=== PATIENT | female | born 1975 | race American Indian/Alaskan Native ===

== ENCOUNTER 2017-12-28 13:43 | Inpatient (IN) | payer MEDICAID, OTHER ==
[2017-12-28 14:33] LABS: MEAN CELL VOLUME 55.2 fL (81.0-99.0); MEAN CORPUSCULAR HEMOGLOBIN 15.4 pg (27.0-31.0); MEAN CORPUSCULAR HGB CONC 27.9 g/dL (33.0-37.0); MEAN PLATELET VOLUME 8.7 fL (7.2-11.7); RBC 4.19 Mil/uL (3.80-5.20); RED CELL DISTRIBUTION WIDTH 22.6 % (11.5-14.5)
[2017-12-28 14:37] LABS: HEMOGLOBIN 6.5 g/dL (11.0-16.0)
[2017-12-28 14:50] LABS: ALB/GLOB RATIO 1.2 (1.0-2.1); ALBUMIN 3.8 g/dL (3.5-5.0); ALT/SGPT 19 U/L (9-52); AST/SGOT 26 U/L (14-36); BLOOD UREA NITROGEN 11 mg/dL (7-17); CALCIUM 8.7 mg/dl (8.6-10.4); GFR NON-AFRICAN AMERICAN > 60
[2017-12-28 14:54] LABS: WHITE BLOOD COUNT 4.1 K/uL (4.8-10.8)
--- NOTE | 2017-12-28 15:57 | C.PDOC ---
History Of Present Illness 42 y/o F c PMHx anemia 1 year ago p/w leg numbness, headache, and weakness x weeks. States same symptoms as when she has had anemia in the past. States had a prolonged period recently. Denies bloody or black stool, chest pain, dyspnea, nausea, vomiting, LOC. Time Seen by Provider: 12/28/17 15:06 Chief Complaint (Nursing): Abnormal Labs Past Medical History Vital Signs: Last Vital Signs Temp 97.8 F 12/28/17 13:47 Pulse 86 12/28/17 13:47 Resp 18 12/28/17 13:47 BP 116/77 12/28/17 13:47 Pulse Ox 100 12/28/17 13:47 - Medical History PMH: Anemia - [facility] Procedures BILAT TUBAL DESTRUCT NEC (11/16/03) LOW CERVICAL (11/16/03) Family History: States: No Known Family Hx - Social History Hx Alcohol Use: No Hx Substance Use: No - Immunization History Hx Tetanus Toxoid Vaccination: No Hx Influenza Vaccination: No Hx Pneumococcal Vaccination: No Review Of Systems Except As Marked, All Systems Reviewed And Found Negative. Constitutional: Negative for: Fever Cardiovascular: Negative for: Chest Pain Physical Exam - Physical Exam Additional Physical Exam Comments: Gen: NAD Head: NC/AT Eyes: Conjunctival pallor ENT: MMM Neck: Supple CV: Regular rate, no murmur Chest: No deformity Abd: Soft, NT Back: No CVA tenderness Skin: No rash Neuro: Alert Extremities: No edema ED Course And Treatment - Laboratory Results Result Diagrams: 12/28/17 14:23 12/28/17 14:41 O2 Sat by Pulse Oximetry: 100 Medical Decision Making Medical Decision Making: EKG NSR 64 bpm, no ST/T wave changes. Found to be anemic severely. Will require blood transfusion. Consented. Dr. Ley, medicine lactation coordinator, accepts patient to his service. Disposition Discussed With : Rodriguez Ley Doctor Will See Patient In The: Hospital - Disposition Disposition: HOSPITALIZED Disposition Time: 15:58 Condition: FAIR - Clinical Impression Clinical Impression: Symptomatic anemia
[2017-12-28] MEDS ORDERED: Ferric Sodium Gluconat Complex 62.5 mg/5 ml Vial IVPB SCH (16:15)
[2017-12-28] MEDS ORDERED: Ferric Sodium Gluconat Complex 125 MG in Sodium Chloride 0.9% 100 ML IVPB ONE (18:00)
[2017-12-28 18:39] LABS: IRON 56 ug/dL (37-170)
[2017-12-28 18:48] LABS: % IRON SATURATION 13 (20-55); TOTAL IRON BINDING CAPACITY 435 ug/dL (250-450)
[2017-12-28 19:07] VITALS: RESP 20
--- NOTE | 2017-12-28 21:49 | CP.PCM.HP ---
Past Patient History - Past Medical History & Family History Past Medical History?: Yes - Past Social History Smoking Status: Never Smoked - CARDIAC Hx Cardiac Disorders: No - PULMONARY Hx Respiratory Disorders: No - NEUROLOGICAL Hx Neurological Disorder: No - HEENT Hx HEENT Problems: No - RENAL Hx Chronic Kidney Disease: No - ENDOCRINE/METABOLIC Hx Endocrine Disorders: No - HEMATOLOGICAL/ONCOLOGICAL Hx Blood Disorders: Yes Hx Anemia: Yes - INTEGUMENTARY Hx Dermatological Problems: No - MUSCULOSKELETAL/RHEUMATOLOGICAL Hx Musculoskeletal Disorders: No Hx Falls: No - GASTROINTESTINAL Hx Gastrointestinal Disorders: No - GENITOURINARY/GYNECOLOGICAL Hx Genitourinary Disorders: No - PSYCHIATRIC Hx Psychophysiologic Disorder: No Hx Substance Use: No - SURGICAL HISTORY Hx Surgeries: Yes Hx Section: Yes - ANESTHESIA Hx Anesthesia: Yes Hx Anesthesia Reactions: No Meds Allergies/Adverse Reactions: Allergies Allergy/AdvReac Type Severity Reaction Status Date / Time No Known Allergies Allergy Verified 12/28/17 13:51 Results - Vital Signs Recent Vital Signs: Last Vital Signs Temp 97.7 F 12/28/17 18:45 Pulse 67 12/28/17 18:45 Resp 20 12/28/17 18:45 BP 122/64 12/28/17 18:45 Pulse Ox 100 12/28/17 18:45 - Labs Result Diagrams: 12/28/17 14:23 12/28/17 14:41 Labs: Laboratory Results - last 24 hr 12/28/17 12/28/17 12/28/17 14:23 14:41 14:41 WBC 4.1 L RBC 4.19 Hgb 6.5 L* Hct 23.1 L MCV 55.2 L MCH 15.4 L MCHC 27.9 L RDW 22.6 H Plt Count 355 MPV 8.7 Differential Comment Sodium 139 Potassium 3.8 Chloride 107 Carbon Dioxide 21 L Anion Gap 14 BUN 11 Creatinine 0.6 L Est GFR ( Amer) > 60 Est GFR (Non-Af Amer) > 60 Random Glucose 79 Calcium 8.7 Iron TIBC % Saturation Total Bilirubin 0.5 AST 26 ALT 19 Alkaline Phosphatase 54 Total Protein 6.9 Albumin 3.8 Globulin 3.1 Albumin/Globulin Ratio 1.2 Urine HCG, Qual Stool Occult Blood Blood Type B POSITIVE Blood Type Confirm B POSITIVE Antibody Screen Negative 12/28/17 12/28/17 12/28/17 15:57 18:23 20:45 WBC RBC Hgb Hct MCV MCH MCHC RDW Plt Count MPV Differential Comment Sodium Potassium Chloride Carbon Dioxide Anion Gap BUN Creatinine Est GFR ( Amer) Est GFR (Non-Af Amer) Random Glucose Calcium Iron 56 TIBC 435 % Saturation 13 L Total Bilirubin AST ALT Alkaline Phosphatase Total Protein Albumin Globulin Albumin/Globulin Ratio Urine HCG, Qual Negative Stool Occult Blood Negative Blood Type Blood Type Confirm Antibody Screen
[2017-12-29 07:24] LABS: HEMOGLOBIN 7.8 g/dL (11.0-16.0); MEAN CORPUSCULAR HEMOGLOBIN 17.4 pg (27.0-31.0); MEAN CORPUSCULAR HGB CONC 29.5 g/dL (33.0-37.0); RBC 4.48 Mil/uL (3.80-5.20); WHITE BLOOD COUNT 4.5 K/uL (4.8-10.8)
[2017-12-29 07:38] LABS: MEAN CELL VOLUME 59.1 fL (81.0-99.0)
--- NOTE | 2017-12-29 09:55 | HP ---
CHIEF COMPLAINT: Weakness and numbness of the leg x1 day. HISTORY OF PRESENT ILLNESS: This is a 42-year-old -[place] female with a history of menorrhagia. The patient was referred by her PMD for generalized weakness, difficulty walking, palpitation and dizziness. She denies any history of rectal bleeding. She denies any hematemesis. She denies any history of hemoptysis. According to her, she bleeds heavily with menses and she has this issue since her childhood. She has not seen any cushion maker recently and she is noncompliant with followup with her PMD. No fever. No chills. No dysuria, hematuria or pyuria. She denies any significant . SOCIAL HISTORY: Nonsmoker. Non EtOH user. CURRENT MEDICATIONS: Unsure. PAST MEDICAL HISTORY: Nothing significant. PHYSICAL EXAMINATION: GENERAL: A middle-aged female in no acute distress. Weak, pale. VITAL SIGNS: Blood pressure 116/77, pulse 56, respiratory rate 18, temperature 97.8. SKIN: Pale. Normal turgor. HEENT: Atraumatic, normocephalic. Positive pallor. Negative jaundice. Extraocular movements are intact. NECK: Supple. No JVD. No lymph node. No thyromegaly. No carotid bruits. CHEST WALL: Bilateral symmetrical expansion. LUNGS: Clear. No rales. No rhonchi. CARDIOVASCULAR SYSTEM: S1, S2 regular. ABDOMEN: Soft. PELVIC: No fresh bleeding. EXTREMITIES: No clubbing, cyanosis or edema. CENTRAL NERVOUS SYSTEM: Awake, alert and oriented x3. ASSESSMENT: 1. Anemia due to iron deficiency due to vaginal bleeding. 2. Vaginal bleeding, rule out fibroid. PLAN: Admit. Detailed orders written. Seen and examined. Rodriguez Ley MD
[2017-12-29] MEDS ORDERED: Ferric Sodium Gluconat Complex 125 MG in Sodium Chloride 0.9% 100 ML IVPB SCH (10:00)
[2017-12-29] MEDS ORDERED: Pneumococcal 23-Valent Vaccine IM ONE (14:00)
[2017-12-29] MEDS ORDERED: Influenza Vaccine 60 MCG/0.5 ML SYR (3 yr & up) IM ONE (14:00)
--- NOTE | 2017-12-29 14:27 | US ---
Pelvic ultrasound HISTORY: Fibroid lesions. COMPARISON: None available. TECHNIQUE: Real-time sonography was performed through the pelvis utilizing transabdominal and transvaginal techniques. Findings: Uterus: 12.6 x 7.1 x 8.0 centimeters. Heterogeneous echotexture. Anteverted. Heterogeneous lesions within the uterus suggestive for possible fibroid lesions: Midportion: 3.3 x 2.3 x 2.7 centimeters, 1.5 x 1.5 x 0.9 centimeters, and 1.9 x2.3 x 2.1 centimeters with some associated calcification. Anterior aspect: 7 x 5 x 7 millimeters. Posterior aspect: 4.1 x 3.1 x 4.1 centimeters. Prominent endometrium measuring 1.6 centimeters. Cervix measures 3.6 centimeters. Free fluid within the pelvic cul-de-sac. Right ovary: 4.9 x 2.9 x 4.1 centimeters. Normal flow. Complex cystic lesion in the right ovary measuring 2.4 x 1.8 x 2.0 centimeters. Free fluid adjacent to the right ovary. Left ovary: 3.2 x 1.4 x 3.4 centimeters. Normal flow. Free fluid adjacent to the left ovary. Impression: 1. Multiple lesions noted within the uterus suggestive for a multi fibroid uterus. Correlation with pelvic MRI may be helpful if clinically indicated. 2. 2.4 centimeter complex right ovarian cyst. 4-6 week interval follow-up may be helpful if clinically indicated. 3. Thickened endometrium measuring 1.6 centimeters. Clinical correlation. 4. Fluid within the pelvic cul-de-sac and adjacent to the ovaries. Free fluid within the pelvic cul-de-sac and adjacent to the bilateral ovaries. He
--- NOTE | 2017-12-29 21:44 | CP.PCM.PN ---
Subjective - Subjective Subjective: dictated Objective - Vital Signs/Intake and Output Vital Signs (last 24 hours): Temp Pulse Resp BP Pulse Ox 98.2 F 71 20 108/68 100 12/29/17 15:00 12/29/17 15:00 12/29/17 15:00 12/29/17 15:00 12/29/17 15:00 - Medications Medications: Current Medications Ferric Sodium Gluconate Complex 125 mg/ Sodium Chloride 110 mls @ 110 mls/hr IVPB DAILY JOE Stop: 01/05/18 10:01 - Labs Labs: 12/29/17 06:45 12/28/17 14:41
--- NOTE | 2017-12-30 06:15 | PN ---
DATE: 12/29/2017 SUBJECTIVE: Italo Odom has multiple uterine fibroids. Her hemoglobin is up to 7.8. She is afebrile. No shortness of breath. PHYSICAL EXAMINATION: VITAL SIGNS: Blood pressure 110/68, pulse 71, respiratory rate 20, temperature 98.2. LUNGS: Clear. CVS: S1, S2. Regular. ABDOMEN: Soft. ASSESSMENT: Uterine fibroids with vaginal bleeding. Anemia due to uterine fibroids. PLAN: Continue current medication. Monitor the patient. Rodriguez Ley MD
[2017-12-30] MEDS: Ferric Sodium Gluconat Complex 125 MG in Sodium Chloride 0.9% 100 ML IVPB SCH (10:45)
[2017-12-30 13:56] LABS: HEMOGLOBIN 8.3 g/dL (11.0-16.0); MEAN CORPUSCULAR HEMOGLOBIN 17.4 pg (27.0-31.0); MEAN CORPUSCULAR HGB CONC 29.5 g/dL (33.0-37.0); MEAN PLATELET VOLUME 8.8 fL (7.2-11.7); RBC 4.74 Mil/uL (3.80-5.20); RED CELL DISTRIBUTION WIDTH 25.7 % (11.5-14.5); WHITE BLOOD COUNT 5.1 K/uL (4.8-10.8)
[2017-12-30 14:26] LABS: ALB/GLOB RATIO 1.1 (1.0-2.1); ALBUMIN 3.5 g/dL (3.5-5.0); ALT/SGPT 18 U/L (9-52); AST/SGOT 22 U/L (14-36); BLOOD UREA NITROGEN 12 mg/dL (7-17); CALCIUM 8.9 mg/dl (8.6-10.4); GFR NON-AFRICAN AMERICAN > 60
[2017-12-30 14:53] LABS: EOS # 0.4 K/uL (0.0-0.7); LYMPH # 1.1 K/uL (1.0-4.3); MONO # 0.5 K/uL (0.0-0.8); NEUT # 3.1 K/uL (1.8-7.0)
--- NOTE | 2017-12-30 23:54 | CP.PCM.PN ---
Subjective - Subjective Subjective: dictated Objective - Vital Signs/Intake and Output Vital Signs (last 24 hours): Temp Pulse Resp BP Pulse Ox 98.6 F 60 20 102/57 L 99 12/30/17 15:00 12/30/17 15:00 12/30/17 15:00 12/30/17 15:00 12/30/17 15:00 Intake and Output: 12/30/17 12/31/17 18:59 06:59 Intake Total 930 700 Balance 930 700 - Medications Medications: Current Medications Ferric Sodium Gluconate Complex 125 mg/ Sodium Chloride 110 mls @ 110 mls/hr IVPB DAILY JOE Stop: 01/05/18 10:01 Last Admin: 12/30/17 10:45 Dose: 110 mls/hr - Labs Labs: 12/30/17 13:39 12/30/17 13:39
[2017-12-31 01:27] VITALS: O2SAT 100
--- NOTE | 2017-12-31 02:55 | PN ---
DATE: 12/31/2017 SUBJECTIVE: Italo Odom is for discharge. She is afebrile. Feels better. Less short of breath. Less weak. Less dizziness. PHYSICAL EXAMINATION VITAL SIGNS: BP 102/57, pulse 60, respiratory rate 20, temperature 98.6. LUNGS: Clear. CARDIOVASCULAR SYSTEM: S1 and S2, regular. ABDOMEN: Soft. ASSESSMENT: 1. Uterine fibroids. 2. Anemia due to bleeding from uterine fibroids. PLAN: Continue current medication. Monitor the patient. Rodriguez Ley MD
[2017-12-31 07:58] LABS: HEMOGLOBIN 8.4 g/dL (11.0-16.0); MEAN CELL VOLUME 58.8 fL (81.0-99.0); WHITE BLOOD COUNT 5.2 K/uL (4.8-10.8)
[2017-12-31 08:17] LABS: ALB/GLOB RATIO 1.1 (1.0-2.1); ALBUMIN 3.4 g/dL (3.5-5.0); ALT/SGPT 12 U/L (9-52); AST/SGOT 22 U/L (14-36); BLOOD UREA NITROGEN 11 mg/dL (7-17); GFR NON-AFRICAN AMERICAN > 60
[2017-12-31 08:25] VITALS: BP 102/69; PULSE 70; TEMP 98.3
[2017-12-31 08:28] LABS: MEAN CORPUSCULAR HEMOGLOBIN 17.2 pg (27.0-31.0); MEAN CORPUSCULAR HGB CONC 29.3 g/dL (33.0-37.0); MEAN PLATELET VOLUME 8.7 fL (7.2-11.7); RBC 4.86 Mil/uL (3.80-5.20)
[2017-12-31] MEDS: Ferric Sodium Gluconat Complex 125 MG in Sodium Chloride 0.9% 100 ML IVPB SCH (09:08)
[2017-12-31 11:30] LABS: EOS # 0.4 K/uL (0.0-0.7); LYMPH # 1.1 K/uL (1.0-4.3); MONO # 0.5 K/uL (0.0-0.8); NEUT # 3.2 K/uL (1.8-7.0)
--- NOTE | 2017-12-31 12:00 | CP.PCM.PN ---
Subjective - Date & Time of Evaluation Date of Evaluation: 12/31/17 Time of Evaluation: 11:25 - Subjective Subjective: Patient seen today, states feels better ,no bleeding reported , denies any abdominal pain, N/V/D, a febrile s/p PRBC transfusion labs reviewed - hgb improved and stable - 8.4>7.8>6.5 Objective - Vital Signs/Intake and Output Vital Signs (last 24 hours): Temp Pulse Resp BP Pulse Ox 98.3 F 70 20 102/69 100 12/31/17 07:15 12/31/17 07:15 12/31/17 07:15 12/31/17 07:15 12/31/17 07:15 Intake and Output: 12/31/17 12/31/17 06:59 18:59 Intake Total 700 Balance 700 - Medications Medications: Current Medications Acetaminophen (Tylenol 325mg Tab) 650 mg PO Q6 PRN PRN Reason: Headache Last Admin: 12/31/17 08:24 Dose: 650 mg Ferric Sodium Gluconate Complex 125 mg/ Sodium Chloride 110 mls @ 110 mls/hr IVPB DAILY JOE Stop: 01/05/18 10:01 Last Admin: 12/31/17 09:08 Dose: 110 mls/hr - Labs Labs: 12/31/17 07:37 12/31/17 07:37 Assessment and Plan - Assessment and Plan (Free Text) Assessment: A/P 42 y/o F c PMHx anemia presented to [facility] ED with leg numbness, headache, and weakness x weeks and found to have anemia with hgb of 6.5 s/p PRBC transfusion and symptoms improved hgb improved and stable - 8.4>7.8>6.5 D/w Dr. Ley, cleared for discharge home today and f/u with PMD and RADIOLOGY PHYSICIAN in 1 week discharge plan discussed with patient who understands and agrees with plan Discussed with patient about abdominal /pelvis US report and needs to f/u with RADIOLOGY PHYSICIAN for further f/u , who understands and agrees with plan patient instructed to returns to ED if symptoms returns
--- NOTE | 2017-12-31 19:22 | CARD ---
APPROVED REPORT Date of service: 12/28/2017 EKG Measurement Heart [id number] CT [id number] <Conclusion> Normal sinus rhythm Normal ECG
--- NOTE | 2017-12-31 22:59 | CP.PCM.DIS ---
Provider - Provider Date of Admission: 12/28/17 15:42 Attending physician: Rodriguez Ley MD Hospital Course - Lab Results Lab Results: Most Recent Lab Values WBC 5.2 K/uL (4.8-10.8) 12/31/17 07:37 RBC 4.86 Mil/uL (3.80-5.20) 12/31/17 07:37 Hgb 8.4 g/dL (11.0-16.0) L 12/31/17 07:37 Hct 28.5 % (34.0-47.0) L 12/31/17 07:37 MCV 58.8 fL (81.0-99.0) L 12/31/17 07:37 MCH 17.2 pg (27.0-31.0) L 12/31/17 07:37 MCHC 29.3 g/dL (33.0-37.0) L 12/31/17 07:37 RDW 26.0 % (11.5-14.5) H 12/31/17 07:37 Plt Count 245 K/uL (130-400) 12/31/17 07:37 MPV 8.7 fL (7.2-11.7) 12/31/17 07:37 Neut % (Auto) 61.0 % (50.0-75.0) 12/31/17 07:37 Lymph % (Auto) 20.0 % (20.0-40.0) 12/31/17 07:37 Clinch % (Auto) 10.0 % (0.0-10.0) 12/31/17 07:37 Eos % (Auto) 9.0 % (0.0-4.0) H 12/31/17 07:37 Baso % (Auto) 0.0 % (0.0-2.0) 12/31/17 07:37 Neut # (Auto) 3.2 K/uL (1.8-7.0) 12/31/17 07:37 Lymph # (Auto) 1.1 K/uL (1.0-4.3) 12/31/17 07:37 Clinch # (Auto) 0.5 K/uL (0.0-0.8) 12/31/17 07:37 Eos # (Auto) 0.4 K/uL (0.0-0.7) 12/31/17 07:37 Baso # (Auto) 0.0 K/uL (0.0-0.2) 12/31/17 07:37 Differential Comment 12/28/17 14:23 Sodium 139 mmol/L (132-148) 12/31/17 07:37 Potassium 3.8 mmol/L (3.6-5.2) 12/31/17 07:37 Chloride 107 mmol/L (98-107) 12/31/17 07:37 Carbon Dioxide 22 mmol/L (22-30) 12/31/17 07:37 Anion Gap 13 (10-20) 12/31/17 07:37 BUN 11 mg/dL (7-17) 12/31/17 07:37 Creatinine 0.6 mg/dL (0.7-1.2) L 12/31/17 07:37 Est GFR ( Amer) > 60 12/31/17 07:37 Est GFR (Non-Af Amer) > 60 12/31/17 07:37 Random Glucose 88 mg/dL (65-105) 12/31/17 07:37 Calcium 9.0 mg/dl (8.6-10.4) 12/31/17 07:37 Iron 56 ug/dL (37-170) 12/28/17 18:23 TIBC 435 ug/dL (250-450) 12/28/17 18:23 % Saturation 13 (20-55) L 12/28/17 18:23 Total Bilirubin 0.4 mg/dL (0.2-1.3) 12/31/17 07:37 AST 22 U/L (14-36) 12/31/17 07:37 ALT 12 U/L (9-52) 12/31/17 07:37 Alkaline Phosphatase 53 U/L (38-126) 12/31/17 07:37 Total Protein 6.5 g/dL (6.3-8.3) 12/31/17 07:37 Albumin 3.4 g/dL (3.5-5.0) L 12/31/17 07:37 Globulin 3.1 gm/dL (2.2-3.9) 12/31/17 07:37 Albumin/Globulin Ratio 1.1 (1.0-2.1) 12/31/17 07:37 Urine HCG, Qual Negative (NEGATIVE) 12/28/17 20:45 Stool Occult Blood Negative (NEGATIVE) 12/28/17 15:57 Blood Type B POSITIVE 12/28/17 14:41 Blood Type Confirm B POSITIVE 12/28/17 14:41 Antibody Screen Negative 12/28/17 14:41 Discharge Plan - Discharge Medications Prescriptions: Ferrous Sulfate 325 mg PO DAILY #30 tablet - Follow Up Plan Condition: FAIR Disposition: HOME/ ROUTINE Instructions: Ferrous Sulfate, Normocytic Normochromic Anemia (DC) Additional Instructions: Please f/u with Dr. Seth office in 1 week( f/u visit and needs repeat labs ) Please f/u with [facility] DRILLER IN 1 week (f/u visit ) Continue medication as per Med. rec Please [facility]yster pick[facility] [place] Referrals: Rodriguez Ley MD [Staff Provider] - Karen Seth MD [Staff Provider] -
--- NOTE | 2018-01-01 05:29 | DS ---
ADMISSION DIAGNOSIS: Dizziness. DISCHARGE DIAGNOSES: 1. Anemia. 2. Menorrhagia. HISTORY: This is a 42-year-old female with no significant past medical history, came with generalized weakness, dizziness, and her leg gave up. She was admitted to the floor. She had low hemoglobin. She was transfused. She did well post her transfusion. She received intravenous iron. The patient needs to go and give iron on an outpatient basis. She agrees . PHYSICAL EXAMINATION: VITAL SIGNS: Blood pressure 102/69, pulse 70, respiratory rate 20, and temperature 98.3. LUNGS: Clear. CVS: S1 and S2 regular. LABORATORY DATA: WBC 5.2, hemoglobin 8.4, hematocrit 28.5, platelet 245. Her chemistry is normal. AST is normal. CONDITION UPON DISCHARGE: Stable. Rodriguez Ley MD
== END 2017-12-31 14:30 | disposition home or self-care (01) | DRG 369 ==
LOC: C.ER 13:43 → C.9E 15:42 → C.5S 18:20
PROVIDERS: ADMIT Internal Medicine; ATTEND Internal Medicine
DX: D25.9 Leiomyoma of uterus, unspecified (principal); D50.0 Iron deficiency anemia secondary to blood loss (chronic); N92.0 Excessive and frequent menstruation with regular cycle; Z91.19 Patient's noncompliance with other medical treatment and regimen

== ENCOUNTER 2018-02-26 15:13 | Emergency (ER) | payer OTHER ==
[2018-02-26 15:28] VITALS: BP 124/83; PULSE 92; RESP 18; TEMP 97.8; O2SAT 100
[2018-02-26] MEDS ORDERED: Naproxen 550 mg Tab PO STA (15:56)
--- NOTE | 2018-02-26 15:58 | C.PDOC ---
History Of Present Illness 42 y/o female presents to the ED for evaluation of upper back/neck pain developing for the past week. Patient states she slept on her left shoulder about 1 week ago, now reports new-onset tingling and spasm, swelling over top of left upper back. No trauma. Denies focal weakness or numbness. Limited relief with OTC topical muscle creams. Time Seen by Provider: 02/26/18 15:34 Chief Complaint (Nursing): Upper Extremity Problem/Injury History Per: Patient History/Exam Limitations: no limitations Onset/Duration Of Symptoms: Days Current Symptoms Are (Timing): Still Present Past Medical History Reviewed: Historical Data, Nursing Documentation, Vital Signs Vital Signs: Last Vital Signs Temp 97.8 F 02/26/18 15:25 Pulse 92 H 02/26/18 15:25 Resp 18 02/26/18 15:25 BP 124/83 02/26/18 15:25 Pulse Ox 100 02/26/18 15:25 - Medical History PMH: Anemia Denies: Chronic Kidney Disease - [facility] Procedures BILAT TUBAL DESTRUCT NEC (11/16/03) LOW CERVICAL (11/16/03) Family History: States: No Known Family Hx - Social History Hx Alcohol Use: No Hx Substance Use: No - Immunization History Hx Tetanus Toxoid Vaccination: No Hx Influenza Vaccination: No Hx Pneumococcal Vaccination: No Review Of Systems Except As Marked, All Systems Reviewed And Found Negative. Constitutional: Negative for: Fever Cardiovascular: Negative for: Chest Pain Respiratory: Negative for: Shortness of Breath Musculoskeletal: Positive for: Shoulder Pain (and tingling) Skin: Negative for: Rash, Lesions Neurological: Negative for: Weakness, Numbness Physical Exam - Physical Exam Appears: Non-toxic, No Acute Distress Skin: Warm, Dry, No Rash Head: Atraumatic, Normacephalic Eye(s): bilateral: Normal Inspection, PERRL, EOMI Neck: Normal ROM (full ROM of neck), No Midline Cervical Tenderness, Supple Back: Muscle Spasm (to the left trapezius, with minimal swelling) Extremity: Capillary Refill (less than 2 sec), No Deformity, Other (Shoulder has full ROM with pain) Pulses: Left Radial: Normal, Right Radial: Normal Neurological/Psych: Oriented x3, Normal Speech ED Course And Treatment O2 Sat by Pulse Oximetry: 100 (RA) Pulse Ox Interpretation: Normal Medical Decision Making Medical Decision Making: Plan: - Naproxen 550 mg PO - Valium 5 mg PO Patient will be discharged home, provided with RX for the same. Disposition Counseled Patient/Family Regarding: Diagnosis, Need For Followup, Rx Given - Disposition Referrals: [facility] [Outside] [facility] [Outside] Disposition: HOME/ ROUTINE Disposition Time: 15:57 Condition: IMPROVED Prescriptions: diaZEpam [Valium] 2 mg PO TID PRN #15 tab PRN Reason: Muscle Spasm Naproxen 500 mg PO BID #30 tab Instructions: Muscle Spasms (DC) Forms: [email or web address] (Japanese), Work Excuse - Clinical Impression Clinical Impression: Shoulder sprain, Back spasm - Scribe Statement The provider has reviewed the documentation as recorded by the Kaylah Quintero Provider Attestation: All medical record entries made by the Kaylah were at my direction and personally dictated by me. I have reviewed the chart and agree that the record accurately reflects my personal performance of the history, physical exam, medical decision making, and the department course for this patient. I have also personally directed, reviewed, and agree with the discharge instructions and disposition.
[2018-02-26] MEDS ORDERED: Naproxen 550 mg Tab PO ONE (16:07)
== END 2018-02-26 16:07 | disposition home or self-care (01) ==
LOC: C.ER 15:13
DX: M62.830 Muscle spasm of back (principal); S43.402A Unspecified sprain of left shoulder joint, initial encounter; X50.1XXA Overexertion from prolonged static or awkward postures, initial encounter

== ENCOUNTER 2018-05-31 11:06 | Emergency (ER) | payer OTHER ==
[2018-05-31 11:19] VITALS: RESP 20; TEMP 97.8; O2SAT 100
--- NOTE | 2018-05-31 11:27 | C.PDOC ---
History Of Present Illness 42 y/o female, with history of fibroids, comes in complaining of menstrual cramps and migraine exacerbation since yesterday. Patient denies any fever, chills, nausea, or vomiting. States she has not tried any pain medications today. CO MENSTRUAL CRAMPS, MIGRAINE EXAC SINCE YEST. HO FIBROIDS. NO NAUSEA. NO PAIN MEDS TRIED TODAY. EXAM MILD DIST NONTOXIC HEENT NO PHOTOPHOBIA; NO PALLOR ABD NEG REMAINDER NEG MDM PENDING OBGYN APPT 06/02. REQUESTING WORK NOTE Time Seen by Provider: 05/31/18 11:18 Chief Complaint (Nursing): Female Genitourinary History Per: Patient History/Exam Limitations: no limitations Onset/Duration Of Symptoms: Days Current Symptoms Are (Timing): Still Present Past Medical History Reviewed: Historical Data, Nursing Documentation, Vital Signs Vital Signs: Last Vital Signs Temp 97.8 F 05/31/18 11:18 Pulse 70 05/31/18 11:18 Resp 20 05/31/18 11:18 BP 148/81 05/31/18 11:18 Pulse Ox 100 05/31/18 11:18 - Medical History PMH: Anemia Denies: Chronic Kidney Disease - [facility] Procedures BILAT TUBAL DESTRUCT NEC (11/16/03) LOW CERVICAL (11/16/03) Family History: States: No Known Family Hx - Social History Hx Alcohol Use: No Hx Substance Use: No - Immunization History Hx Tetanus Toxoid Vaccination: No Hx Influenza Vaccination: No Hx Pneumococcal Vaccination: No Review Of Systems Except As Marked, All Systems Reviewed And Found Negative. Gastrointestinal: Negative for: Nausea, Vomiting Genitourinary: Positive for: Other (Menstrual Cramping) Neurological: Positive for: Other (Migraine) Physical Exam - Physical Exam Appears: Non-toxic, In Acute Distress (mild) Skin: Warm, Dry, No Pale Head: Atraumatic, Normacephalic Eye(s): bilateral: Normal Inspection (no photophobia) Oral Mucosa: Moist Neck: Supple Cardiovascular: Rhythm Regular, No Murmur Respiratory: Normal Breath Sounds, No Rales, No Rhonchi, No Wheezing Gastrointestinal/Abdominal: Soft, No Tenderness, No Guarding, No Rebound Back: No CVA Tenderness Extremity: No Pedal Edema, No Calf Tenderness Extremity: Bilateral: Atraumatic, Normal Color And Temperature, Normal ROM Neurological/Psych: Oriented x3, Normal Speech, Normal Cognition Gait: Steady ED Course And Treatment O2 Sat by Pulse Oximetry: 100 (RA) Pulse Ox Interpretation: Normal Medical Decision Making Medical Decision Making: Plan: --Reglan 10 mg IM --Toradol 60 mg IM --Tylenol PO PENDING OBGYN APPT 06/02. REQUESTING WORK NOTE Disposition Counseled Patient/Family Regarding: Diagnosis, Need For Followup, Rx Given - Disposition Referrals: YOUR,PMD [Other] Disposition: HOME/ ROUTINE Disposition Time: 11:26 Condition: IMPROVED Prescriptions: Ibuprofen [Motrin] 600 mg PO Q6 #30 tab Metoclopramide [Reglan] 1 tab PO TID PRN #25 tab PRN Reason: Nausea/Vomiting Instructions: Migraine Headache (DC), Menstrual Cramps (DC) Forms: Work/School/Gym Excuse, [facility] ([place]) - Clinical Impression Clinical Impression: Migraine, Menstrual cramps - Scribe Statement The provider has reviewed the documentation as recorded by the Kaylah Kingsley Provider Attestation: All medical record entries made by the Kayalh were at my direction and personally dictated by me. I have reviewed the chart and agree that the record accurately reflects my personal performance of the history, physical exam, medical decision making, and the department course for this patient. I have also personally directed, reviewed, and agree with the discharge instructions and disposition.
[2018-05-31 11:44] VITALS: BP 132/87; PULSE 67
== END 2018-05-31 11:44 | disposition home or self-care (01) ==
LOC: C.ER 11:06
DX: G43.909 Migraine, unspecified, not intractable, without status migrainosus (principal); N94.6 Dysmenorrhea, unspecified
CPT/HCPCS: 96372; 99284; J1885; J2765

== ENCOUNTER 2018-08-01 13:47 | Emergency (ER) | payer OTHER | END 2018-08-01 15:45 | disposition home or self-care (01) | LOC: C.ER 13:47 ==